=== PATIENT | female | born 1980 | race African-American/Black ===

== ENCOUNTER 2016-12-17 19:32 | Emergency (ER) | payer OTHER ==
[~2016-12-17] VITALS: Ht 154.9 cm; Wt 117.9 kg
[~2016-12-17 19:32] MED LIST: ALBUTEROL17 G1 IH; ALBUTEROL17 GM INH; ANEXSIA 5/325 M1 TA1 PO; ATARAX PO; BACTRIM 400-801 TA1 PO; BIRTH CONTROL PILL PO; CLEOCIN; CLEOCIN PO; DAKIN'S MODIF1000 ML EXT; FEOSOL PO; FLEXERIL PO; FLEXERIL10 MG PO; FOLIC ACID PO; FOLIC ACID1 MG PO; HYDROXYZINE HCL10 MG PO; IBUPROFEN PO; IRON1 TAB PO; IRON325 ( 65 ) PO; LORTAB 7.5-3251 EACH PO; MORPHINE SULF IV; NIFEREX-150150 MG PO; NO MEDICATIONS; PERCOCET5/325 PO; PREDNISONE PO; PREVACID PO; PROTONIX PO; SULFASALAZINE500 M1 PO; ULTRAM PO; VIBRAMYCIN100 M1 PO; VICODIN 5/500 T1 TAB PO; VITAMIN C PO; VITAMIN C500 M1 PO; ZANTAC PO; ZITHROMAX PO; ZOFRAN4 MG/5 ML IV; ZOSYN 3.373.375 GM/5 IV
== END 2016-12-17 23:20 | disposition home or self-care (01) ==
LOC: CED 19:32 → CFTX 19:32
DX: L02.412 Cutaneous abscess of left axilla (principal); L02.416 Cutaneous abscess of left lower limb; J45.909 Unspecified asthma, uncomplicated; D64.9 Anemia, unspecified; K50.90 Crohn's disease, unspecified, without complications; Z98.890 Other specified postprocedural states; Z79.899 Other long term (current) drug therapy; Z88.0 Allergy status to penicillin; Z88.8 Allergy status to other drugs, medicaments and biological substances
CPT/HCPCS: 10061; 87070; 87077; 87186; 87205; 90471; 90715; 99283